=== PATIENT | female | born 1985 | race Hispanic/Latino ===

== ENCOUNTER 2018-03-03 09:35 | Emergency (ER) | payer SELFPAY ==
[2018-03-03 10:37] LABS: Protime INR 1.09
[2018-03-03 10:40] LABS: Absolute Lymphocytes (CBC) 1.6 K/uL (0.7-4.9); Absolute Monocytes 0.4 K/uL (0.1-1.3); Absolute Neutrophil 2.5 K/uL (1.8-8.0); Basophils % 1.5 % (0-1.3); Eosinophils % 3.3 % (0-4.4); Hematocrit 35.4 % (36.0-45.0); MPV 8.3 fL (7.6-11.3); Monocytes % 9.2 % (3.3-12.3); RBC Red Blood Cell Count 4.98 M/uL (3.86-4.86)
--- NOTE | 2018-03-03 10:43 | EKG ---
Test Date: 2018-03-03 Test Time: 09:51:16 Liquid Compounder: NORMA MEASUREMENT RESULTS: Intervals: Rate: 82 IA: 122 QRSD: 78 QT: 358 QTc: 418 [place]: P: 54 IA: 122 QRS: 59 T: 39 INTERPRETIVE STATEMENTS: Normal sinus rhythm Normal ECG No previous ECG available for comparison Electronically Signed On 03-03-18 10:42:[address] by Óscar Jorge
[2018-03-03 10:58] LABS: ALT/SGPT 25 U/L (12-78); AST/SGOT 22 U/L (15-37); Albumin 3.8 g/dL (3.4-5.0); Alkaline Phosphatase 74 U/L (45-117); BUN Blood Urea Nitrogen 15 mg/dL (7-18); Bicarbonate 28 mmol/L (21-32); Bilirubin Direct < 0.1 mg/dL (0-0.2); Bilirubin Total 0.2 mg/dL (0.2-1.0); Glucose Level 84 mg/dL (74-106); Magnesium 1.9 mg/dL (1.8-2.4); NT PRO-BNP 68 pg/mL (<125); Potassium 4.3 mmol/L (3.5-5.1); Protein, Total 7.7 g/dL (6.4-8.2); Sodium Level 143 mmol/L (136-145); Troponin (Emerg Dept Use Only) < 0.02 ng/mL (0.0-0.045)
--- NOTE | 2018-03-03 11:03 | RAD REPORT ---
EXAM DESCRIPTION: RAD - Chest Single View - 03/03/2018 10:52 am CLINICAL HISTORY: Intermittent chest pain COMPARISON: None. TECHNIQUE: AP portable chest image was obtained 1024 hours . FINDINGS: Lungs are clear. Heart and vasculature are normal. No measurable pleural effusion and no p neumothorax. No acute bony abnormality seen. No acute aortic findings suspected. IMPRESSION: No acute cardiopulmonary process.
[2018-03-03 11:32] LABS: Urine Blood 2+ (NEG); Urine Glucose NEGATIVE (NEG); Urine Protein NEGATIVE (NEG); Urine pH 5.5 (5.0-7.0)
--- NOTE | 2018-03-03 12:48 | EDPHYS ---
Physician Documentation [facility] Name: Josselin Etienne Age: 33 yrs Sex: Female : 1985 Arrival Date: 03/03/2018 Time: 09:37 Bed 17 Private MD: ED Physician Remigio Booth HPI: 03/03 10:45 This 33 yrs old Female presents to ER via Ambulatory with complaints of Chest kdr Pain. 10:45 The patient or guardian reports chest pain that is located primarily in the anterior kdr chest wall, left. The pain does not radiate. Associated signs and symptoms: Pertinent positives: None. Pertinent negatives: abdominal pain, cough, diaphoresis, dizziness, headache, lower extremity pain, lower extremity swelling, lightheadedness, nausea, near syncope, palpitations, recent travel, shortness of breath, syncope, vomiting. The chest pain is described as aching, burning, dull, a pressure. Duration: The patient or guardian reports multiple episodes, that are intermittent, that wax and wane, with no pattern. Modifying factors: The symptoms are alleviated by nothing. the symptoms are aggravated by nothing. Severity of pain: At its worst the pain was moderate in the emergency department the pain has improved mildly. The patient has not experienced similar symptoms in the past. The patient has not recently seen a physician. 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 - Social history:: Smoking status: . - Ebola Screening: : Patient denies travel to an Ebola-affected area in the 21 days before illness onset. ROS: 10:45 Constitutional: Negative for fever, chills, and weight loss, Eyes: Negative for injury, kdr pain, redness, and discharge, ENT: Negative for injury, pain, and discharge, Neck: Negative for injury, pain, and swelling, Respiratory: Negative for shortness of breath, cough, wheezing, and pleuritic chest pain, Abdomen/GI: Negative for abdominal pain, nausea, vomiting, diarrhea, and constipation, Back: Negative for injury and pain, : Negative for injury, bleeding, discharge, and swelling, MS/Extremity: Negative for injury and deformity, Skin: Negative for injury, rash, and discoloration, Neuro: Negative for headache, weakness, numbness, tingling, and seizure activity. Psych: Negative for depression, anxiety, suicide ideation, homicidal ideation, and hallucinations, Allergy/Immunology: Negative for hives, rash, and allergies, Endocrine: Negative for neck swelling, polydipsia, polyuria, polyphagia, and marked weight changes, Hematologic/Lymphatic: Negative for swollen nodes, abnormal bleeding, and unusual bruising. 10:45 Cardiovascular: Positive for chest pain, Negative for edema, orthopnea, palpitations, paroxysmal nocturnal dyspnea. Exam: 10:45 Constitutional: This is a well developed, well nourished patient who is awake, alert, kdr and in no acute distress. Head/Face: Normocephalic, atraumatic. Eyes: Pupils equal round and reactive to light, extra-ocular motions intact. Lids and lashes normal. Conjunctiva and sclera are non-icteric and not injected. Cornea within normal limits. Periorbital areas with no swelling, redness, or edema. Neck: Trachea midline, no thyromegaly or masses palpated, and no cervical lymphadenopathy. Supple, full range of motion without nuchal rigidity, or vertebral point tenderness. No Meningismus. Chest/axilla: Normal chest wall appearance and motion. Nontender with no deformity. No lesions are appreciated. Cardiovascular: Regular rate and rhythm with a normal S1 and S2. No gallops, murmurs, or rubs. Normal PMI, no JVD. No pulse deficits. Respiratory: Lungs have equal breath sounds bilaterally, clear to auscultation and percussion. No rales, rhonchi or wheezes noted. No increased work of breathing, no retractions or nasal flaring. Abdomen/GI: Soft, non-tender, with normal bowel sounds. No distension or tympany. No guarding or rebound. No evidence of tenderness throughout. Back: No spinal tenderness. No costovertebral tenderness. Full range of motion. Skin: Warm, dry with normal turgor. Normal color with no rashes, no lesions, and no evidence of cellulitis. MS/ Extremity: Pulses equal, no cyanosis. Neurovascular intact. Full, normal range of motion. Neuro: Awake and alert, GCS 15, oriented to person, place, time, and situation. Cranial nerves II-XII grossly intact. Motor strength 5/5 in all extremities. Sensory grossly intact. Cerebellar exam normal. Normal gait. Psych: Awake, alert, with orientation to person, place and time. Behavior, mood, and affect are within normal limits. Vital Signs: 09:47 BP 144 / 90; Pulse 90; Resp 18; Temp 98.3(O); Pulse Ox 100% on R/A; Pain 7/10; tw2 11:07 BP 125 / 79; Pulse 81; Resp 20; Pulse Ox 100% on R/A; aj 13:14 BP 126 / 99; Pulse 74; Resp 19; Pulse Ox 100% on R/A; aj MDM: 10:45 Data reviewed: vital signs, nurses notes, lab test result(s), EKG, radiologic studies. kdr 12:48 Patient medically screened. [facility] 03/03 09:57 Order name: Basic Metabolic Panel; Complete Time: 11:45 [facility] 03/03 09:57 Order name: CBC with Diff; Complete Time: 11:45 [facility] 03/03 09:57 Order name: LFT's; Complete Time: 11:45 [facility] 03/03 09:57 Order name: Magnesium; Complete Time: 11:45 [facility] 03/03 09:57 Order name: NT PRO-BNP; Complete Time: 11:45 [facility] 03/03 09:57 Order name: PT-INR; Complete Time: 11:45 [facility] 03/03 09:57 Order name: Troponin (emerg Dept Use Only); Complete Time: 11:45 [facility] 03/03 09:57 Order name: XRAY Chest (1 view); Complete Time: 11:45 [facility] 03/03 09:57 Order name: EKG; Complete Time: 09:58 [facility] 03/03 09:57 Order name: Cardiac monitoring; Complete Time: 11:10 [facility] 03/03 09:57 Order name: EKG - Nurse/Tech; Complete Time: 11:10 [facility] 03/03 09:57 Order name: IV Saline Lock; Complete Time: 11:10 [facility] 03/03 10:15 Order name: Urine Dipstick--Ancillary (enter results); Complete Time: 11:45 03/03 10:15 Order name: Urine --Ancillary (enter results); Complete Time: 11:45 03/03 09:57 Order name: Labs collected and sent; Complete Time: 11: [facility] 03/03 09:57 Order name: O2 Per Protocol; Complete Time: 11:10 kdr 03/03 09:57 Order name: O2 Sat Monitoring; Complete Time: 11:10 kdr Administered Medications: No medications were administered Disposition: 03/03/18 12:48 Discharged to Home. Impression: Chest pain, unspecified. - Condition is Stable. - Discharge Instructions: Nonspecific Chest Pain. - Prescriptions for Ibuprofen 600 mg Oral Tablet - take 1 tablet by ORAL route every 6 hours As needed take with food; 30 tablet. - Medication Reconciliation Form, Thank You Letter form. - Follow up: Private Physician; When: 2 - 3 days; Reason: If symptoms return, Further diagnostic work-up, Recheck today's complaints, Continuance of care, Re-evaluation by your physician. - Problem is new. - Symptoms are unchanged. Signatures: Dispatcher [employer] EDBrittany Larson RN RN Remigio Crawford MD MD kdr Sosa Ramires RN RN tw2 Corrections: (The following items were deleted from the chart) 13:17 12:48 03/03/2018 12:48 Discharged to Home. Impression: Chest pain, unspecified. aj Condition is Stable. Forms are Medication Reconciliation Form, Thank You Letter, Antibiotic Education, Prescription Opioid Use. Follow up: Private Physician; When: 2 - 3 days; Reason: If symptoms return, Further diagnostic work-up, Recheck today's complaints, Continuance of care, Re-evaluation by your physician. Problem is new. Symptoms are unchanged. kdr
--- NOTE | 2018-03-03 12:48 | ER ---
Nurse's Notes [facility] Name: Josselin Etienne Age: 33 yrs Sex: Female : 1985 Arrival Date: 03/03/2018 Time: 09:37 Bed 17 Private MD: Diagnosis: Chest pain, unspecified Presentation: 03/03 09:45 Presenting complaint: Patient states: for the past few months i have been having chest tw2 panis but the last few days i feel more pressure on my left side. Transition of care: patient was not received from another setting of care. Onset of symptoms was March 03, 2018. Risk Assessment: Do you want to hurt yourself or someone else? Patient reports no desire to harm self or others. Initial Sepsis Screen: Does the patient meet any 2 criteria? No. Patient's initial sepsis screen is negative. Does the patient have a suspected source of infection? No. Patient's initial sepsis screen is negative. Care prior to arrival: None. 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 - Social history:: Smoking status: . - Ebola Screening: : Patient denies travel to an Ebola-affected area in the 21 days before illness onset. Screenin:15 Abuse screen: Denies threats or abuse. Denies injuries from another. Nutritional aj screening: No deficits noted. Tuberculosis screening: No symptoms or risk factors identified. Fall Risk None identified. Assessment: 10:15 General: Appears in no apparent distress. comfortable, Behavior is calm, cooperative, aj appropriate for age. Pain: Complains of pain in chest. Neuro: Level of Consciousness is awake, alert, obeys commands, Oriented to person, place, time, situation, Appropriate for age. Cardiovascular: Capillary refill < 3 seconds in bilateral fingers. Respiratory: Airway is patent Respiratory effort is even, unlabored, Respiratory pattern is regular, symmetrical. Respiratory: Reports cough that is. Derm: Skin is intact, is healthy with good turgor, Skin is pink, warm \T\ dry. normal. 13:14 Reassessment: Patient appears in no apparent distress at this time. No changes from aj previously documented assessment. Patient and/or family updated on plan of care and expected duration. Pain level reassessed. Patient is alert, oriented x 3, equal unlabored respirations, skin warm/dry/pink. Vital Signs: 09:47 BP 144 / 90; Pulse 90; Resp 18; Temp 98.3(O); Pulse Ox 100% on R/A; Pain 7/10; tw2 11:07 BP 125 / 79; Pulse 81; Resp 20; Pulse Ox 100% on R/A; aj 13:14 BP 126 / 99; Pulse 74; Resp 19; Pulse Ox 100% on R/A; aj ED Course: 09:37 Patient arrived in ED. mr 09:45 Sosa Ramires, RN is Primary Nurse. tw2 09:45 Placed in gown. Bed in low position. nurse monitoring on. Pulse ox on. NIBP on. tw2 09:45 Patient maintains SpO2 saturation greater than 95% on room air. tw2 09:47 Triage completed. tw2 09:49 Remigio Booth MD is Attending Physician. kdr 10:01 EKG done, by agronomy technician. reviewed by Remigio Booth MD. at1 10:14 Urine collected: clean catch specimen, clear. mh5 10:15 Inserted saline lock: 22 gauge in right forearm, using aseptic technique. Blood aj collected. 10:46 X-ray completed. Portable x-ray completed in exam room. Patient tolerated procedure mh1 well. 10:53 XRAY Chest (1 view) In Process Unspecified. EDMS 11:04 Brittany Treadwell, RN is Primary Nurse. aj 11:22 Urine Dipstick--Ancillary (enter results) Sent. aj 11:22 Urine --Ancillary (enter results) Sent. aj 13:14 No provider procedures requiring assistance completed. IV discontinued, intact, aj bleeding controlled, No redness/swelling at site. Pressure dressing applied. 13:16 Arm band placed on right wrist. aj Administered Medications: No medications were administered Outcome: 12:48 Discharge ordered by . kdr 13:14 Discharged to home ambulatory. aj 13:14 Condition: good 13:14 Discharge instructions given to patient, Instructed on discharge instructions, follow up and referral plans. medication usage, Demonstrated understanding of instructions, follow-up care, medications, Prescriptions given X 1. 13:17 Patient left the ED. aj Signatures: Dispatcher [employer] Brittany Paul, Remigio De La Paz RN, MD MD [facility] Александр, Ariana mr Melony Castro [facility] Brittany Singer, [facility] Sosa Ramires RN RN [facility]
== END 2018-03-03 13:17 | disposition home or self-care (01) ==
LOC: ER 09:35
DX: R07.9 Chest pain, unspecified (principal)
CPT/HCPCS: 36415; 71045; 80048; 80076; 81003; 81025; 83735; 83880; 84484; 85025; 85610; 93005; 99285

== ENCOUNTER 2018-08-19 11:07 | Emergency (ER) | payer SELFPAY ==
[2018-08-19] MEDS ORDERED: DIPHENHYDRAMINE 25 MG TAB/CAP ONE (12:32)
[2018-08-19] MEDS ORDERED: FAMOTIDINE 20 MG TAB ONE (12:32)
[2018-08-19] MEDS ORDERED: dexAMETHasone 10 MG/ML VIAL ONE (12:32)
[2018-08-19] MEDS ORDERED: TETANUS & DIPHTHERIA TOX,ADULT 0.5 ML VIAL ONE (12:33)
[2018-08-19] MEDS ORDERED: ACETAMINOPHEN 325 MG TABLET ONE (13:39)
--- NOTE | 2018-08-19 14:20 | ER ---
Nurse's Notes [facility] Name: Josselin Etienne Age: 33 yrs Sex: Female : 1985 Arrival Date: 08/19/2018 Time: 11:09 Bed 26 Private MD: Diagnosis: Insect bite (nonvenomous) of unspecified part of head Presentation: 08/19 11:29 Presenting complaint: Patient states: I started with a red bump where a mosquito bit me la1 above my right eye on Wednesday, it is getting more and more swollen. No visual loss or changes. Sclera white. PERRLA. Transition of care: patient was not received from another setting of care. Onset of symptoms was August 19, 2018. Risk Assessment: Do you want to hurt yourself or someone else? Patient reports no desire to harm self or others. Initial Sepsis Screen: Does the patient meet any 2 criteria? No. Patient's initial sepsis screen is negative. Does the patient have a suspected source of infection? No. Patient's initial sepsis screen is negative. Care prior to arrival: None. 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 - Social history:: Smoking status: Patient/guardian denies using tobacco. - Ebola Screening: : No symptoms or risks identified at this time. Screenin:08 Abuse screen: Denies threats or abuse. Nutritional screening: No deficits noted. la1 Tuberculosis screening: No symptoms or risk factors identified. Fall Risk None identified. Assessment: 12:07 General: Appears in no apparent distress. Behavior is calm, cooperative. Pain: Denies la1 pain. Neuro: Level of Consciousness is awake, alert, obeys commands, Oriented to person, place, time, situation. Cardiovascular: Capillary refill < 3 seconds Patient's skin is warm and dry. Respiratory: Airway is patent Respiratory effort is even, unlabored. GI: No signs and/or symptoms were reported involving the gastrointestinal system. : No signs and/or symptoms were reported regarding the genitourinary system. EENT: Small area of redness above right eye, puffiness below right eye. EOMs intact. Derm: Skin is healthy with good turgor, Skin is pink, warm \T\ dry. 13:19 Reassessment: Patient appears in no apparent distress at this time. Patient and/or ca1 family updated on plan of care and expected duration. Pain level reassessed. Patient is alert, oriented x 3, equal unlabored respirations, skin warm/dry/pink. 13:19 Reassessment: Pt C/O headache. Notified Provider. Pain meds ordered and administered. ca1 14:19 Reassessment: Patient appears in no apparent distress at this time. Patient and/or ca1 family updated on plan of care and expected duration. Pain level reassessed. Patient is alert, oriented x 3, equal unlabored respirations, skin warm/dry/pink. Patient states feeling better. Vital Signs: 11:31 BP 137 / 75; Pulse 72; Resp 16; Temp 98.5; Pulse Ox 98% on R/A; Weight 62.14 kg; Height la1 5 ft. 4 in. (162.56 cm); 13:19 BP 124 / 79; Pulse 71; Resp 18 S; Pulse Ox 100% on R/A; Pain 7/10; ca1 14:15 BP 107 / 68; Pulse 71; Resp 16 S; Temp 98.4(O); Pulse Ox 100% on R/A; ca1 11:31 Body Mass Index 23.52 (62.14 kg, 162.56 cm) la1 Visual Acuity: 12:04 Left Eye Visual acuity 20/20, Pupil size 4 mm, ; Right Eye Visual acuity 20/20, Pupil la1 size 4 mm, ; Both Eyes Visual acuity 20/20; Without Lenses; ED Course: 11:09 Patient arrived in ED. as 11:31 Triage completed. la1 11:31 Arm band placed on left wrist. la1 12:02 Santos Lenz NP is PHCP. pm1 12:02 Boogie Romo MD is Attending Physician. pm1 12:07 Carlos Sarabia RN is Primary Nurse. la1 12:09 Call light in reach. Side rails up X 1. la1 14:29 No provider procedures requiring assistance completed. Patient did not have IV access ca1 during this emergency room visit. 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 Exp: la04/30/2020. Lot #: [id number]. } Route: IM; Site: left deltoid; 14:13 Follow up: Response: No adverse reaction ca1 13:22 Drug: Tylenol 650 mg Route: PO; ca1 14:12 Follow up: Response: No adverse reaction; Pain is decreased ca1 Outcome: 14:19 Discharge ordered by . pm1 14:29 Discharged to home ambulatory. ca1 14:29 Condition: stable 14:29 Discharge instructions given to patient, Instructed on discharge instructions, follow up and referral plans. medication usage, Demonstrated understanding of instructions, follow-up care, medications, Prescriptions given X 4. 14:31 Patient left the ED. ca1 Signatures: Ayde [facility] Lee, RN RN la1 Santos Lenz, CED RN HYPERBARIC pm1 Avril Liang RN RN ca1
--- NOTE | 2018-08-19 14:20 | EDPHYS ---
Physician Documentation [facility] Name: Josselin Etienne Age: 33 yrs Sex: Female : 1985 Arrival Date: 08/19/2018 Time: 11:09 Bed 26 Private MD: ED Physician Boogie Romo HPI: 08/19 12:25 This 33 yrs old Female presents to ER via Ambulatory with complaints of Insect pm1 Bite, Eye Swelling, Headache. 12:25 The patient was bitten on the right side of forehead, by Wasp or mosquito. Onset: The pm1 symptoms/episode began/occurred 2 day(s) ago. Animal information: Patient/Caregiver unable to provide information related to the animal. Secondary to the bite the patient reports swelling. Associated signs and symptoms: Pertinent negatives: fever, numbness distal to wound, pain at site, suspected foreign body, swelling at site. Severity of symptoms: in the emergency department the symptoms are unchanged. The patient has not experienced similar symptoms in the past. The patient has not recently seen a physician. 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 - Social history:: Smoking status: Patient/guardian denies using tobacco. - Ebola Screening: : No symptoms or risks identified at this time. ROS: 12:25 Constitutional: Negative for fever, chills, and weight loss. pm1 12:25 ENT: Negative for injury, pain, and discharge, Neck: Negative for injury, pain, and swelling, Cardiovascular: Negative for chest pain, palpitations, and edema, Respiratory: Negative for shortness of breath, cough, wheezing, and pleuritic chest pain, Abdomen/GI: Negative for abdominal pain, nausea, vomiting, diarrhea, and constipation, Back: Negative for injury and pain, MS/Extremity: Negative for injury and deformity, Skin: Negative for injury, rash, and discoloration. 12:25 Neuro: Negative for headache, weakness, numbness, tingling, and seizure. 12:25 Eyes: Positive for swelling, of the right upper eyelid and right lower eyelid, Negative for foreign body sensation, itching, pain. Exam: 12:25 Constitutional: This is a well developed, well nourished patient who is awake, alert, pm1 and in no acute distress. Head/Face: Normocephalic, atraumatic. 12:25 Neck: Trachea midline, no thyromegaly or masses palpated, and no cervical lymphadenopathy. Supple, full range of motion without nuchal rigidity, or vertebral point tenderness. No Meningismus. Chest/axilla: Normal chest wall appearance and motion. Nontender with no deformity. No lesions are appreciated. Cardiovascular: Regular rate and rhythm with a normal S1 and S2. No gallops, murmurs, or rubs. Normal PMI, no JVD. No pulse deficits. Respiratory: Lungs have equal breath sounds bilaterally, clear to auscultation and percussion. No rales, rhonchi or wheezes noted. No increased work of breathing, no retractions or nasal flaring. Abdomen/GI: Soft, non-tender, with normal bowel sounds. No distension or tympany. No guarding or rebound. No evidence of tenderness throughout. Back: No spinal tenderness. No costovertebral tenderness. Full range of motion. MS/ Extremity: Pulses equal, no cyanosis. Neurovascular intact. Full, normal range of motion. 12:25 Eyes: Extraocular movements: intact throughout, Conjunctiva: normal, no acute changes, Corneas: are normal, no acute changes, Lids and lashes: swelling. 12:25 Skin: Appearance: normal except for affected area, abscess, Small phlegmon 1 cm in diameter to right side of forehead above right eyebrow without any fluctuance or discharge. Vital Signs: 11:31 BP 137 / 75; Pulse 72; Resp 16; Temp 98.5; Pulse Ox 98% on R/A; Weight 62.14 kg; Height la1 5 ft. 4 in. (162.56 cm); 13:19 BP 124 / 79; Pulse 71; Resp 18 S; Pulse Ox 100% on R/A; Pain 7/10; ca1 14:15 BP 107 / 68; Pulse 71; Resp 16 S; Temp 98.4(O); Pulse Ox 100% on R/A; ca1 11:31 Body Mass Index 23.52 (62.14 kg, 162.56 cm) la1 Visual Acuity: 12:04 Left Eye Visual acuity 20/20, Pupil size 4 mm, ; Right Eye Visual acuity 20/20, Pupil la1 size 4 mm, ; Both Eyes Visual acuity 20/20; Without Lenses; MDM: 12:07 Patient medically screened. pm1 13:58 Data reviewed: vital signs. Data interpreted: Pulse oximetry: on room air is 100 %. pm1 Interpretation: normal. Counseling: I had a detailed discussion with the patient and/or guardian regarding: the historical points, exam findings, and any diagnostic results supporting the discharge/admit diagnosis, the need for outpatient follow up, to return to the emergency department if symptoms worsen or persist or if there are any questions or concerns that arise at home. Administered Medications: 12:23 Drug: Decadron 10 mg {Note: Administered PO per Santos Lenz.} Route: IM; Site: la1 Other; 14:12 Follow up: Response: No adverse reaction; Pain is decreased ca1 12:23 Drug: Benadryl 25 mg Route: PO; la1 14:12 Follow up: Response: No adverse reaction; Pain is decreased ca1 12:23 Drug: Pepcid 20 mg Route: PO; la1 14:12 Follow up: Response: No adverse reaction ca1 12:24 Drug: Tetanus-Diphtheria Toxoid Adult 0.5 ml {[employer]: [employer]. Exp: 04/30/2020. Lot #: [id number]. } Route: IM; Site: left deltoid; 14:13 Follow up: Response: No adverse reaction ca1 13:22 Drug: Tylenol 650 mg Route: PO; ca1 14:12 Follow up: Response: No adverse reaction; Pain is decreased ca1 Disposition: 15:06 Co-signature as Attending Physician, Boogie Romo MD. rn Disposition: 08/19/18 14:19 Discharged to Home. Impression: Insect bite (nonvenomous) of unspecified part of head. - Condition is Stable. - Discharge Instructions: Insect Bite. - Prescriptions for Benadryl 25 mg Oral Capsule - take 1 capsule by ORAL route every 6 hours As needed; 30 tablet. Pepcid 20 mg Oral Tablet - take 1 tablet by ORAL route every 12 hours for 10 days; 20 tablet. Medrol ([place]) 4 mg Oral Tablets, Dose Pack - take 1 tablet by ORAL route as directed - follow package instructions; 1 packet. Bactrim DS 800- 160 mg Oral Tablet - take 1 tablet by ORAL route every 12 hours for 10 days; 20 tablet. - Medication Reconciliation Form, Thank You Letter, Antibiotic Education, Prescription Opioid Use form. - Follow up: Emergency Department; When: As needed; Reason: Worsening of condition. Follow up: Private Physician; When: 2 - 3 days; Reason: Recheck today's complaints, Continuance of care, Re-evaluation by your physician. - Problem is new. - Symptoms have improved. Signatures: Boogie Romo MD MD rn AttemCarlos noble RN RN la1 Santos Lenz CUSTOMER ACCOUNT MANAGER CUSTOMER ACCOUNT MANAGER pm1 Azul, Avril RN RN ca1 Corrections: (The following items were deleted from the chart) 14:31 14:19 08/19/2018 14:19 Discharged to Home. Impression: Insect bite (nonvenomous) of ca1 unspecified part of head. Condition is Stable. Forms are Medication Reconciliation Form, Thank You Letter, Antibiotic Education, Prescription Opioid Use. Follow up: Emergency Department; When: As needed; Reason: Worsening of condition. Follow up: Private Physician; When: 2 - 3 days; Reason: Recheck today's complaints, Continuance of care, Re-evaluation by your physician. Problem is new. Symptoms have improved. pm1
== END 2018-08-19 14:31 | disposition home or self-care (01) ==
LOC: ER 11:07
DX: S00.86XA Insect bite (nonvenomous) of other part of head, initial encounter (principal)
CPT/HCPCS: 90471; 90714; 96372; 99283; J1100

== ENCOUNTER 2020-02-16 11:15 | Emergency (ER) | payer SELFPAY ==
--- NOTE | 2020-02-16 13:41 | ER ---
Nurse's Notes [facility] Name: Josselin Etienne Age: 35 yrs Sex: Female : 1985 Arrival Date: 02/16/2020 Time: 11:21 Bed 24 Private MD: Diagnosis: Urticaria Presentation: 02/15 11:43 Chief complaint: Patient states: Hives x 2 days. Pt reports that She tested positive ss for covid 6 days ago. Denies SOB. Coronavirus screen: Client presents with at least one sign or symptom that may indicate coronavirus-19. Standard/surgical mask placed on the client. Client reports previous positive COVID test result. Ebola Screen: Patient denies exposure to infectious person. Patient denies travel to an Ebola-affected area in the 21 days before illness onset. Onset: The symptoms/episode began/occurred 2 day(s) ago. Anaphylaxis evaluation, no signs or symptoms of anaphylaxis were noted. Initial Sepsis Screen: Does the patient meet any 2 criteria? No. Patient's initial sepsis screen is negative. Does the patient have a suspected source of infection? No. Patient's initial sepsis screen is negative. Risk Assessment: Do you want to hurt yourself or someone else? Patient reports no desire to harm self or others. Onset of symptoms was February 14, 2020. 11:43 Method Of Arrival: Ambulatory ss 11:43 Acuity: MARINE 4 ss Historical: - Allergies: 11:45 No Known Allergies; ss - Home Meds: 11:45 None [Active]; ss - PMHx: 11:45 None; ss - PSHx: 11:45 None; ss - Immunization history:: Adult Immunizations up to date. - Social history:: Smoking status: Patient denies any tobacco usage or history of. Screenin:59 Abuse screen: Denies threats or abuse. Denies injuries from another. Nutritional zb screening: No deficits noted. Tuberculosis screening: No symptoms or risk factors identified. Fall Risk None identified. Assessment: 13:57 General: Appears in no apparent distress. comfortable, Behavior is calm, cooperative, zb appropriate for age. Pain: Denies pain. Neuro: Level of Consciousness is awake, alert, obeys commands, Oriented to person, place, time, situation. Cardiovascular: Capillary refill < 3 seconds in bilateral fingers Patient's skin is warm and dry. Respiratory: Airway is patent Respiratory effort is even, unlabored, Respiratory pattern is regular, symmetrical, Breath sounds are clear bilaterally. GI: Abdomen is flat, non-distended. : No signs and/or symptoms were reported regarding the genitourinary system. EENT: facial swelling present. . Denies difficulty swallowing. Derm: Skin is intact, is healthy with good turgor, Skin is dry, Skin temperature is warm Rash noted that is macular, itchy, raised, on left gluteus luis alberto, right gluteus luis alberto, right leg and left leg. Musculoskeletal: Circulation, motion, and sensation intact. Capillary refill < 3 seconds, in bilateral fingers. Range of motion: intact in all extremities. Vital Signs: 11:43 BP 118 / 84; Pulse 86; Resp 14; Temp 99.4(TE); Pulse Ox 99% on R/A; Weight 58.97 kg; ss Height 5 ft. 4 in. (162.56 cm); Pain 0/10; 11:43 Body Mass Index 22.31 (58.97 kg, 162.56 cm) ss ED Course: 11:21 Patient arrived in ED. ag5 11:44 Triage completed. ss 11:45 Arm band placed on right wrist. ss 13:26 Cherelle Springer [facility]-C [facility]. kb 13:26 Boogie Romo MD is Attending Physician. kb 13:47 Oksana Conn, ANAIS is Primary Nurse. zb 13:59 Patient has correct armband on for positive identification. Call light in reach. Side zb rails up X 1. Pulse ox on. NIBP on. Door closed. Noise minimized. 14:00 No provider procedures requiring assistance completed. Patient did not have IV access zb during this emergency room visit. Administered Medications: 13:50 Drug: Pepcid 20 mg Route: PO; zb 13:50 Drug: predniSONE 20 mg Route: PO; zb Outcome: 13:41 Discharge ordered by . kb 14:00 Discharged to home ambulatory. zb 14:00 Condition: stable 14:00 Discharge instructions given to patient, Instructed on discharge instructions, follow up and referral plans. medication usage, Demonstrated understanding of instructions, follow-up care, medications, Prescriptions given X 2. 14:00 Patient left the ED. zb Signatures: Cherelle Springer FNP-C FNP-Ckbeto Makayla Mehta, RN RN ss Adrian Covington ag5 Oksana Conn, RN RN zb
--- NOTE | 2020-02-16 13:41 | EDPHYS ---
Physician Documentation [facility] Name: Josselin Etienne Age: 35 yrs Sex: Female : 1985 Arrival Date: 02/16/2020 Time: 11:21 Bed 24 Private MD: ED Physician Boogie Romo HPI: 02/15 13:39 This 35 yrs old Female presents to ER via Ambulatory with complaints of Hives, kb COVID+. 13:39 The patient's rash thought to be caused by an unknown cause. The rash is located on the kb body diffusely. The rash can be described as urticarial. Onset: The symptoms/episode began/occurred 2 day(s) ago. Associated signs and symptoms: Pertinent positives: itching, Pertinent negatives: fever, Pain. Severity of symptoms: At their worst the symptoms were moderate in the emergency department the symptoms are unchanged. Treatment given at home: Benadryl. The patient has not experienced similar symptoms in the past. The patient has not recently seen a physician. Pt reports she has had hives for 2 days with itching. States she has been taking medications that she normally doesn't, drinking teas and washing bedding with a new detergent due to being covid+ so she doesn't know what is causing the hives. Denies shortness of breath, throat tightness.. Historical: - Allergies: 11:45 No Known Allergies; ss - Home Meds: 11:45 None [Active]; ss - PMHx: 11:45 None; ss - PSHx: 11:45 None; ss - Immunization history:: Adult Immunizations up to date. - Social history:: Smoking status: Patient denies any tobacco usage or history of. ROS: 13:37 Constitutional: Negative for fever, chills, and weight loss, Cardiovascular: Negative kb for chest pain, palpitations, and edema, Respiratory: Negative for shortness of breath, cough, wheezing, and pleuritic chest pain, Abdomen/GI: Negative for abdominal pain, nausea, vomiting, diarrhea, and constipation, MS/Extremity: Negative for injury and deformity, Neuro: Negative for headache, weakness, numbness, tingling, and seizure. 13:37 Skin: Positive for rash, diffusely. Exam: 13:37 Constitutional: This is a well developed, well nourished patient who is awake, alert, kb and in no acute distress. Head/Face: Normocephalic, atraumatic. Chest/axilla: Normal chest wall appearance and motion. Nontender with no deformity. No lesions are appreciated. Cardiovascular: Regular rate and rhythm with a normal S1 and S2. No gallops, murmurs, or rubs. Normal PMI, no JVD. No pulse deficits. Respiratory: Lungs have equal breath sounds bilaterally, clear to auscultation and percussion. No rales, rhonchi or wheezes noted. No increased work of breathing, no retractions or nasal flaring. Abdomen/GI: Soft, non-tender, with normal bowel sounds. No distension or tympany. No guarding or rebound. No evidence of tenderness throughout. MS/ Extremity: Pulses equal, no cyanosis. Neurovascular intact. Full, normal range of motion. Neuro: Awake and alert, GCS 15, oriented to person, place, time, and situation. Cranial nerves II-XII grossly intact. Motor strength 5/5 in all extremities. Sensory grossly intact. Cerebellar exam normal. Normal gait. 13:37 Skin: consistent with urticaria, and is diffusely located. Vital Signs: 11:43 BP 118 / 84; Pulse 86; Resp 14; Temp 99.4(TE); Pulse Ox 99% on R/A; Weight 58.97 kg; ss Height 5 ft. 4 in. (162.56 cm); Pain 0/10; 11:43 Body Mass Index 22.31 (58.97 kg, 162.56 cm) ss MDM: 13:27 Patient medically screened. kb 13:37 Data reviewed: vital signs, nurses notes. Data interpreted: Pulse oximetry: on room air kb is 99 %. Interpretation: normal. Counseling: I had a detailed discussion with the patient and/or guardian regarding: the historical points, exam findings, and any diagnostic results supporting the discharge/admit diagnosis, the need for outpatient follow up, an allergy/boarding specialist, a family practitioner, to return to the emergency department if symptoms worsen or persist or if there are any questions or concerns that arise at home. Administered Medications: 13:50 Drug: Pepcid 20 mg Route: PO; zb 13:50 Drug: predniSONE 20 mg Route: PO; zb Disposition: 14:21 Co-signature as Attending Physician, Boogie Romo MD. rn Disposition: 02/16/20 13:41 Discharged to Home. Impression: Urticaria. - Condition is Stable. - Discharge Instructions: Hives, [id number]. - Prescriptions for Pepcid 20 mg Oral Tablet - take 1 tablet by ORAL route every 12 hours for 5 days; 10 tablet. Prednisone 20 mg Oral Tablet - take 1 tablet by ORAL route once daily for 5 days; 5 tablet. - Medication Reconciliation Form, Thank You Letter, Antibiotic Education, Prescription Opioid Use form. - Follow up: Emergency Department; When: As needed; Reason: Worsening of condition. Follow up: Private Physician; When: 2 - 3 days; Reason: Recheck today's complaints, Continuance of care, Re-evaluation by your physician. Signatures: Cherelle Springer, EQUAL OPPORTUNITY REPRESENTATIVE-C EQUAL OPPORTUNITY REPRESENTATIVE-Ckb Boogie Romo MD MD rn Smirch, Shelby, RN RN ss Brown, Zipporah, RN RN zb Corrections: (The following items were deleted from the chart) 14:00 13:41 02/16/2020 13:41 Discharged to Home. Impression: Urticaria. Condition is Stable. zb Forms are Medication Reconciliation Form, Thank You Letter, Antibiotic Education, Prescription Opioid Use. Follow up: Emergency Department; When: As needed; Reason: Worsening of condition. Follow up: Private Physician; When: 2 - 3 days; Reason: Recheck today's complaints, Continuance of care, Re-evaluation by your physician. kb
[2020-02-16] MEDS ORDERED: predniSONE 20 MG TAB ONE (14:07)
[2020-02-16] MEDS ORDERED: FAMOTIDINE 20 MG TAB ONE (14:08)
[2020-02-16 14:10] VITALS: BP 118/84; TEMP 99.4; O2SAT 99
== END 2020-02-16 14:00 | disposition home or self-care (01) ==
LOC: ER 11:15
DX: L50.9 Urticaria, unspecified (principal); U07.1 COVID-19
CPT/HCPCS: 99283; J7512

== ENCOUNTER 2021-01-05 18:31 | Emergency (ER) | payer SELFPAY ==
--- NOTE | 2021-01-05 19:07 | RAD REPORT ---
EXAM DESCRIPTION: CT - Head Brain Wo Cont - 01/05/2021 6:54 pm CLINICAL HISTORY: HEADACHE Headache, drowsiness COMPARISON: No comparisons TECHNIQUE: All CT scans are performed using dose optimization technique as appropriate and may inclu de automated exposure control or mA/KV adjustment according to patient size. FINDINGS: No intracranial hemorrhage, hydrocephalus or extra-axial fluid collection.No areas of brai n edema or evidence of midline shift. The paranasal sinuses and mastoids are clear. The calvarium is intact. IMPRESSION: No acute intracranial abnormality.
--- NOTE | 2021-01-05 19:16 | EDPHYS ---
Physician Documentation [facility] Name: Josselin Etienne Age: 35 yrs Sex: Female : 1985 Arrival Date: 01/05/2021 Time: 18:33 Bed 12 Private MD: ED Physician Paulina Lyle HPI: 01/05 19:14 This 35 yrs old Female presents to ER via Ambulatory with complaints of kb Headache - fall 01/03, Ear Pain. 19:14 The patient complains of pain to the left baptism. The patient describes the headache as kb constant. Onset: The symptoms/episode began/occurred 3 day(s) ago. Associated signs and symptoms: The patient has no apparent associated signs or symptoms. Severity of symptoms: At its worst the pain was mild, moderate, in the emergency department the pain is unchanged. Headache History: Denies prior headaches. The symptoms are alleviated by nothing. the symptoms are aggravated by nothing. The patient has not experienced similar symptoms in the past. The patient has not recently seen a physician. Pt reports she was running and fell on Wednesday hitting left side of head on the ground. Reports headache since fall. 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 - Social history:: Smoking status: Patient denies any tobacco usage or history of. ROS: 19:13 Constitutional: Negative for fever, chills, and weight loss. kb 19:13 Neuro: Positive for headache. 19:13 All other systems are negative. Exam: 19:13 Constitutional: This is a well developed, well nourished patient who is awake, alert, kb and in no acute distress. Head/Face: Normocephalic, atraumatic. Eyes: Pupils equal round and reactive to light, extra-ocular motions intact. Lids and lashes normal. Conjunctiva and sclera are non-icteric and not injected. Cornea within normal limits. Periorbital areas with no swelling, redness, or edema. ENT: Moist Mucous membranes Respiratory: Respirations even and unlabored. No increased work of breathing, no retractions or nasal flaring. Skin: Warm, dry with normal turgor. Normal color. MS/ Extremity: Pulses equal, no cyanosis. Neurovascular intact. Full, normal range of motion. Neuro: Awake and alert, GCS 15, oriented to person, place, time, and situation. Moves all extremities. Normal gait. Psych: Awake, alert, with orientation to person, place and time. Behavior, mood, and affect are within normal limits. Vital Signs: 18:46 BP 147 / 87; Pulse 67; Resp 16; Temp 98.2; Pulse Ox 100% on R/A; Weight 63.5 kg; Height iw 5 ft. 4 in. (162.56 cm); Pain 10/10; 18:46 Body Mass Index 24.03 (63.50 kg, 162.56 cm) iw [place] Coma Score: 19:13 Eye Response: spontaneous(4). Verbal Response: oriented(5). Motor Response: obeys kb commands(6). Total: 15. MDM: 18:46 Patient medically screened. kb 19:13 Data reviewed: vital signs, nurses notes. Data interpreted: Pulse oximetry: on room air kb is 100 %. Interpretation: normal. Counseling: I had a detailed discussion with the patient and/or guardian regarding: the historical points, exam findings, and any diagnostic results supporting the discharge/admit diagnosis, radiology results, the need for outpatient follow up, a family practitioner, to return to the emergency department if symptoms worsen or persist or if there are any questions or concerns that arise at home. 01/05 18:46 Order name: CT Head Brain wo Cont; Complete Time: 19:09 kb Administered Medications: No medications were administered Disposition: 01/06 09:20 Co-signature as Attending Physician, Paulina Llye MD I agree with the assessment and sp3 plan of care. Disposition Summary: 01/05/21 19:15 Discharge Ordered Location: Home kb Condition: Stable kb Diagnosis - Headache kb Followup: kb - With: Emergency Department - When: As needed - Reason: Worsening of condition Followup: kb - With: Private Physician - When: 2 - 3 days - Reason: Recheck today's complaints, Continuance of care, Re-evaluation by your physician Discharge Instructions: - Discharge Summary Sheet kb - Concussion, Adult, [id number] kb - Head Injury, Adult, [id number] kb Forms: - Medication Reconciliation Form kb - Thank You Letter kb - Antibiotic Education kb - Prescription Opioid Use kb Signatures: Dispatcher [employer] Cherelle Lovelace, MAIN-C MAIN-Alejandra Lopez, RN RN Paulina Bradshaw MD MD sp3 Corrections: (The following items were deleted from the chart) 01/05 19:15 19:14 Pt reports she was running and fell on Wednesday hitting left side of head on the kb ground. Reports headache since fall. kb
--- NOTE | 2021-01-05 19:16 | ER ---
Nurse's Notes [facility] Name: Josselin Etienne Age: 35 yrs Sex: Female : 1985 Arrival Date: 01/05/2021 Time: 18:33 Bed 12 Private MD: Diagnosis: Headache Presentation: 01/05 18:44 Chief complaint: Patient states: fell on Wednesday while running and since then has had iw ringing in left ear and headache. Coronavirus screen: At this time, the client does not indicate any symptoms associated with coronavirus-19. Ebola Screen: Patient negative for fever greater than or equal to 101.5 degrees Fahrenheit, and additional compatible Ebola Virus Disease symptoms Patient denies exposure to infectious person. Patient denies travel to an Ebola-affected area in the 21 days before illness onset. No symptoms or risks identified at this time. Initial Sepsis Screen: Does the patient meet any 2 criteria? No. Patient's initial sepsis screen is negative. Does the patient have a suspected source of infection? No. Patient's initial sepsis screen is negative. Risk Assessment: Do you want to hurt yourself or someone else? Patient reports no desire to harm self or others. Onset of symptoms was January 04, 2021. 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 - Social history:: Smoking status: Patient denies any tobacco usage or history of. Screenin:25 Abuse screen: Denies threats or abuse. Denies injuries from another. Nutritional lp1 screening: No deficits noted. Tuberculosis screening: No symptoms or risk factors identified. Fall Risk None identified. Assessment: 19:25 General: Appears in no apparent distress. Behavior is calm, cooperative, appropriate lp1 for age. Pain: Complains of pain in head. Neuro: Level of Consciousness is awake, alert, obeys commands, Oriented to person, place, time, situation, Gait is steady, Speech is normal, Pupils are PERRLA. Cardiovascular: Patient's skin is warm and dry. Respiratory: Respiratory effort is even, unlabored. GI: No signs and/or symptoms were reported involving the gastrointestinal system. : No signs and/or symptoms were reported regarding the genitourinary system. EENT: No signs and/or symptoms were reported regarding the EENT system. Derm: Skin is pink, warm \T\ dry. Musculoskeletal: No deficits noted. Vital Signs: 18:46 BP 147 / 87; Pulse 67; Resp 16; Temp 98.2; Pulse Ox 100% on R/A; Weight 63.5 kg; Height iw 5 ft. 4 in. (162.56 cm); Pain 10/10; 18:46 Body Mass Index 24.03 (63.50 kg, 162.56 cm) iw [place] Score: 19:13 Eye Response: spontaneous(4). Verbal Response: oriented(5). Motor Response: obeys kb commands(6). Total: 15. ED Course: 18:33 Patient arrived in ED. as 18:45 Triage completed. iw 18:46 [facility]C [facility]. kb 18:46 Paulina Lyle MD is Attending Physician. kb 18:46 Arm band placed on. iw 18:54 CT Head Brain wo Cont In Process Unspecified. EDMS 19:25 Carla Lopes, RN is Primary Nurse. lp1 19:26 Patient has correct armband on for positive identification. lp1 19:26 No provider procedures requiring assistance completed. Patient did not have IV access lp1 during this emergency room visit. Administered Medications: No medications were administered Outcome: 19:15 Discharge ordered by . kb 19:26 Discharged to home ambulatory. lp1 19:26 Condition: good 19:26 Discharge instructions given to patient, Instructed on discharge instructions, follow up and referral plans. Demonstrated understanding of instructions, follow-up care. 19:26 Patient left the ED. lp1 Signatures: Dispatcher [employer] EDMS Cherelle Springer FNP-C FNP-Ayde Khalil Irene, RN RN iw Carla Lopes, ANAIS RN lp1
[2021-01-05 19:32] VITALS: BP 147/87; TEMP 98.2; O2SAT 100
== END 2021-01-05 19:26 | disposition home or self-care (01) ==
LOC: ER 18:31
DX: R51.9 Headache, unspecified (principal)
CPT/HCPCS: 70450; 99283